=== PATIENT | male | born 1940 | race Caucasian/White ===

== ENCOUNTER 2023-06-10 09:28 | Day surgery (SDC) | payer OTHER ==
[2023-06-10] MEDS ORDERED: Zoledronic Acid/Mannitol/Water 5 MG/100 ML INFUS.BOT IV ONE (10:00)
[2023-06-10 10:32] VITALS: BP 122/59; TEMP 97.7; O2SAT 97; BMI 25.2
== END 2023-06-10 10:28 | disposition home or self-care (01) ==
LOC: DS 09:28
PROVIDERS: ATTEND Internal Medicine
DX: M81.0 Age-related osteoporosis without current pathological fracture (principal); R13.10 Dysphagia, unspecified
CPT/HCPCS: 96365; J3489